=== PATIENT | male | born 1965 | race Caucasian/White ===

== ENCOUNTER 2019-10-17 00:27 | Inpatient (IN) ==
[2019-10-17] MEDS ORDERED: Aspirin 81 MG TAB.CHEW PO ONE (00:33)
[2019-10-17] MEDS ORDERED: *HR* Ticagrelor 90 MG TABLET PO ONE (00:33)
[2019-10-17] MEDS ORDERED: *HR* Ticagrelor 90 MG TABLET ONE (00:38)
[2019-10-17] MEDS ORDERED: *HR* Heparin 5,000 UNIT/ML VIAL ONE (00:38)
[2019-10-17] MEDS ORDERED: *HR* Heparin 5,000 UNIT/ML VIAL IVP ONE (00:39)
[2019-10-17] MEDS ORDERED: Aspirin 81 MG TAB.CHEW ONE ×2 (00:39→07:43)
[2019-10-17] MEDS ORDERED: Morphine Sulfate 2 MG/ML SYRINGE IVP ONE (00:40)
[2019-10-17] MEDS ORDERED: Ondansetron 4 MG/2 ML VIAL IVP STA (00:40)
[2019-10-17] MEDS ORDERED: Heparin 1,000 UNITS/500 mL 500 ML ONE (00:50)
[2019-10-17] MEDS ORDERED: 0.9 % Sodium Chloride 1,000 ML ONE (00:50)
[2019-10-17] MEDS ORDERED: ISOVUE-370 200 ML INFUS..BTL ONE (00:50)
[2019-10-17] MEDS ORDERED: *HR* Heparin 10,000 UNIT/10 ML VIAL ONE (00:50)
[2019-10-17] MEDS ORDERED: Nitroglycerin 1,000 MCG/10 ML VIAL IV ONE (00:50)
[2019-10-17] MEDS ORDERED: *HR* Midazolam HCl 2 MG/2 ML VIAL ONE (00:56)
[2019-10-17] MEDS ORDERED: *HR* FentaNYL (PF) 100 MCG/2 ML VIAL ONE (00:57)
[2019-10-17] MEDS ORDERED: Tirofiban 12.5 MG/250ML 12.5 MG/250 ML BAG ONE (01:01)
[2019-10-17 01:04] LABS: Prothrombin Time 10.8 Seconds (9.4-12.1)
[2019-10-17 01:07] LABS: Activated Partial Thrombo Time 26.4 Seconds (26.0-36.0); Basophils # 0.1 K/mcL (0.0-0.2); Basophils % 0.6 %; Eosinophils # 0.4 K/mcL (0.0-0.6); Eosinophils % 2.7 %; Hematocrit 48.7 % (37.5-50.1); Hemoglobin 16.4 g/dL (12.9-16.9); Immature Granulocytes % 0.3 % (0-4); Lymphocytes % 30.1 %; Mean Corpuscular HGB Conc 33.7 g/dL (31.6-35.5); Mean Corpuscular Hemoglobin 31.2 pg (28.0-33.3); Mean Corpuscular Volume 92.8 fL (83.0-100.0); Mean Platelet Volume 9.3 fL (9.4-12.4); Monocytes # 1.3 K/mcL (0.0-1.3); Monocytes % 9.5 %; Neutrophils # 7.5 K/mcL (1.6-8.9); Platelet Count 277 K/mcL (140-400); Red Blood Count 5.25 M/mcL (4.19-5.50); Red Cell Distribution Width 12.8 % (11.5-14.5); Segmented Neutrophils % 56.8 %; White Blood Count 13.1 K/mcL (4.3-11.1)
[2019-10-17] MEDS ORDERED: Perflutren Lipid Microsphere 1.3 ML in 0.9 % Sodium Chloride 8.7 ML IVP PRN (01:12)
[2019-10-17] MEDS ORDERED: Tirofiban 12.5 MG/250ML 12.5 MG/250 ML BAG IVC SCH (01:15)
[2019-10-17 01:19] LABS: Alanine Aminotransferase 40 Units/L (7-52); Albumin 4.2 g/dL (3.5-5.7); Albumin/Globulin Ratio 1.6 (1.1-2.2); Alkaline Phosphatase 41 Units/L (34-104); Aspartate Amino Transferase 26 Units/L (13-39); BUN/Creatinine Ratio 16 (6-26); Bilirubin,Total 0.5 mg/dL (0.3-1.0); Blood Urea Nitrogen 17 mg/dL (6-20); Calcium 9.1 mg/dL (8.6-10.3); Carbon Dioxide 21 mEq/L (23-29); Chloride 103 mEq/L (98-107); Globulin 2.7 g/dL (2.4-3.5); Glucose 248 mg/dL (70-105); Magnesium 1.9 mg/dL (1.6-2.6); Osmolality,Calculated 292 (280-300); Potassium 3.4 mEq/L (3.5-5.1); Sodium 136 mEq/L (136-145); Total Protein 6.9 g/dL (6.4-8.9); eGFR For African Americans > 60 (> 60); eGFR For Non-African Americans > 60 (> 60)
[2019-10-17 01:20] LABS: Troponin I < 0.03 ng/mL (< 0.04)
[2019-10-17 05:12] LABS: Basophils % 0.4 %; Eosinophils # 0.1 K/mcL (0.0-0.6); Eosinophils % 0.6 %; Hematocrit 47.5 % (37.5-50.1); Hemoglobin 15.8 g/dL (12.9-16.9); Immature Granulocytes % 0.4 % (0-4); Lymphocytes # 1.2 K/mcL (0.6-4.6); Lymphocytes % 12.8 %; Mean Corpuscular HGB Conc 33.3 g/dL (31.6-35.5); Mean Corpuscular Volume 93.3 fL (83.0-100.0); Mean Platelet Volume 9.3 fL (9.4-12.4); Monocytes # 0.5 K/mcL (0.0-1.3); Neutrophils # 7.2 K/mcL (1.6-8.9); Platelet Count 246 K/mcL (140-400); Red Blood Count 5.09 M/mcL (4.19-5.50); Red Cell Distribution Width 12.8 % (11.5-14.5); Segmented Neutrophils % 79.8 %; White Blood Count 9.1 K/mcL (4.3-11.1)
[2019-10-17 05:29] LABS: BUN/Creatinine Ratio 18 (6-26); Blood Urea Nitrogen 14 mg/dL (6-20); Calcium 8.8 mg/dL (8.6-10.3); Carbon Dioxide 20 mEq/L (23-29); Chloride 105 mEq/L (98-107); Glucose 261 mg/dL (70-105); Osmolality,Calculated 290 (280-300); Potassium 4.2 mEq/L (3.5-5.1); Sodium 135 mEq/L (136-145); eGFR For African Americans > 60 (> 60); eGFR For Non-African Americans > 60 (> 60)
[2019-10-17] MEDS: *HR* Ticagrelor 90 MG TABLET PO SCH ×2 (07:49→21:14)
[2019-10-17] MEDS ORDERED: Metoprolol XL (24 HR) Succ 25 MG TAB.ER.24H PO SCH (09:30)
[2019-10-17] MEDS: Apixaban 5 MG TABLET PO SCH ×2 (15:21→21:14)
[2019-10-17] MEDS: Metoprolol XL (24 HR) Succ 25 MG TAB.ER.24H PO SCH (21:14)
[2019-10-18] MEDS: Apixaban 5 MG TABLET PO SCH ×2 (08:00→20:51)
[2019-10-18] MEDS: Metoprolol XL (24 HR) Succ 25 MG TAB.ER.24H PO SCH ×2 (08:00→20:50)
[2019-10-18] MEDS: *HR* Ticagrelor 90 MG TABLET PO SCH ×2 (08:00→20:50)
[2019-10-18] MEDS ORDERED: Aspirin 81 MG TAB.CHEW PO SCH (09:00)
[2019-10-18] MEDS ORDERED: lisinopriL 5 MG TABLET PO SCH (09:00)
[2019-10-18 09:39] LABS: Basophils # 0.1 K/mcL (0.0-0.2); Eosinophils # 0.3 K/mcL (0.0-0.6); Eosinophils % 3.7 %; Hematocrit 49.5 % (37.5-50.1); Hemoglobin 16.8 g/dL (12.9-16.9); Immature Granulocytes % 0.5 % (0-4); Lymphocytes # 1.7 K/mcL (0.6-4.6); Mean Corpuscular HGB Conc 33.9 g/dL (31.6-35.5); Mean Corpuscular Hemoglobin 32.4 pg (28.0-33.3); Mean Corpuscular Volume 95.6 fL (83.0-100.0); Mean Platelet Volume 9.1 fL (9.4-12.4); Monocytes # 0.6 K/mcL (0.0-1.3); Monocytes % 8.6 %; Neutrophils # 4.6 K/mcL (1.6-8.9); Platelet Count 238 K/mcL (140-400); Red Blood Count 5.18 M/mcL (4.19-5.50); Red Cell Distribution Width 13.3 % (11.5-14.5); Segmented Neutrophils % 63.2 %; White Blood Count 7.3 K/mcL (4.3-11.1)
[2019-10-18 09:47] LABS: BUN/Creatinine Ratio 13 (6-26); Blood Urea Nitrogen 12 mg/dL (6-20); Calcium 9.4 mg/dL (8.6-10.3); Carbon Dioxide 27 mEq/L (23-29); Chloride 103 mEq/L (98-107); Glucose 174 mg/dL (70-105); Osmolality,Calculated 290 (280-300); Potassium 3.6 mEq/L (3.5-5.1); Sodium 138 mEq/L (136-145); eGFR For African Americans > 60 (> 60); eGFR For Non-African Americans > 60 (> 60)
[2019-10-18] MEDS ORDERED: Spironolactone 25 MG TABLET PO SCH (10:00)
[2019-10-18] MEDS ORDERED: Methyl Salicylate/Menthol 57 APPL/57 GM TUBE TP PRN (10:45)
[2019-10-18] MEDS ORDERED: Loratadine 10 MG TABLET PO PRN (10:45)
[2019-10-18 12:58] LABS: Troponin I 0.72 ng/mL (< 0.04)
[2019-10-19] MEDS: *HR* Ticagrelor 90 MG TABLET PO SCH (08:28)
[2019-10-19] MEDS: Apixaban 5 MG TABLET PO SCH (08:29)
[2019-10-19] MEDS: Metoprolol XL (24 HR) Succ 25 MG TAB.ER.24H PO SCH (08:29)
[2019-10-19] MEDS ORDERED: Spironolactone 25 MG TABLET PO SCH (09:00)
[2019-10-19] MEDS ORDERED: Aspirin 81 MG TAB.CHEW PO SCH (09:00)
[2019-10-19 14:49] VITALS: BP 153/96
== END 2019-10-19 13:41 | disposition home or self-care (01) | DRG 174 ==
LOC: EMEROOARM 00:27 → ICNU 01:10
PROVIDERS: ADMIT Internal Medicine Cardiovascular Disease; ATTEND Internal Medicine Cardiovascular Disease

== ENCOUNTER 2019-11-18 12:40 | Inpatient (IN) ==
[2019-11-18] MEDS ORDERED: 0.9 % Sodium Chloride 500 ML IVC ONE (12:50)
[2019-11-18] MEDS: Aspirin 81 MG TAB.CHEW PO SCH (13:16)
[2019-11-18 13:29] LABS: Basophils # 0.1 K/mcL (0.0-0.2); Basophils % 0.8 %; Eosinophils # 0.2 K/mcL (0.0-0.6); Eosinophils % 2.2 %; Hematocrit 50.4 % (37.5-50.1); Hemoglobin 16.9 g/dL (12.9-16.9); Immature Granulocytes % 0.3 % (0-4); Lymphocytes # 1.9 K/mcL (0.6-4.6); Lymphocytes % 21.1 %; Mean Corpuscular HGB Conc 33.5 g/dL (31.6-35.5); Mean Corpuscular Hemoglobin 31.5 pg (28.0-33.3); Mean Corpuscular Volume 93.9 fL (83.0-100.0); Mean Platelet Volume 9.4 fL (9.4-12.4); Monocytes # 0.9 K/mcL (0.0-1.3); Monocytes % 9.7 %; Neutrophils # 5.9 K/mcL (1.6-8.9); Platelet Count 265 K/mcL (140-400); Red Blood Count 5.37 M/mcL (4.19-5.50); Red Cell Distribution Width 12.6 % (11.5-14.5); Segmented Neutrophils % 65.9 %; White Blood Count 8.9 K/mcL (4.3-11.1)
[2019-11-18] MEDS: DilTIAZem 50 MG/50 ML IV.SOLN IVC SCH ×2 (13:30→22:09)
[2019-11-18 13:31] LABS: INR 1.3; Prothrombin Time 14.8 Seconds (9.4-12.1)
[2019-11-18 13:33] LABS: Activated Partial Thrombo Time 34.9 Seconds (26.0-36.0)
[2019-11-18 13:36] LABS: Bilirubin,Urine Negative (Negative); Blood,Urine Trace (Negative); Clarity,Urine Clear (Clear); Color,Urine Colorless (Yellow); Glucose,Urine (UA) >=1000 mg/dL (Normal); Ketones,Urine Negative (Negative); Leukocyte Esterase,Urine Negative (Negative); Mucus,Urine Few per lpf (None-Few); Nitrite,Urine Negative (Negative); PH,Urine 5.5 pH Units (5.0-8.0); Protein,Urine Negative (Neg-Trace); RBC,Urine 0-3 per hpf (0-3); Specific Gravity,Urine 1.014 (1.010-1.025); Urobilinogen,Urine Normal (Normal); WBC,Urine 0-3 per hpf (0-3)
[2019-11-18 13:48] LABS: Alanine Aminotransferase 51 Units/L (7-52); Albumin 4.5 g/dL (3.5-5.7); Albumin/Globulin Ratio 1.6 (1.1-2.2); Alkaline Phosphatase 53 Units/L (34-104); Aspartate Amino Transferase 28 Units/L (13-39); BUN/Creatinine Ratio 18 (6-26); Bilirubin,Total 0.7 mg/dL (0.3-1.0); Blood Urea Nitrogen 18 mg/dL (6-20); Calcium 9.7 mg/dL (8.6-10.3); Carbon Dioxide 25 mEq/L (23-29); Chloride 102 mEq/L (98-107); Globulin 2.9 g/dL (2.4-3.5); Glucose 324 mg/dL (70-105); Osmolality,Calculated 296 (280-300); Sodium 136 mEq/L (136-145); Total Protein 7.4 g/dL (6.4-8.9); Troponin I < 0.03 ng/mL (< 0.04); eGFR For African Americans > 60 (> 60); eGFR For Non-African Americans > 60 (> 60)
[2019-11-18 14:16] LABS: Adenovirus Not Detected (Not Detect); Bordetella Pertussis Not Detected (Not Detect); Chlamydophila pneumoniae Not Detected (Not Detect); Coronavirus 229E Not Detected (Not Detect); Coronavirus HKU1 Not Detected (Not Detect); Coronavirus NL63 Not Detected (Not Detect); Coronavirus OC43 Not Detected (Not Detect); Human Metapneumovirus Not Detected (Not Detect); Human Rhinovirus/Enterovirus Not Detected (Not Detect); Influenza A Subtype 2009 H1 Not Detected (Not Detect); Influenza B Not Detected (Not Detect); Mycoplasma pneumoniae Not Detected (Not Detect); Parainfluenza Virus 1 Not Detected (Not Detect); Parainfluenza Virus 2 Not Detected (Not Detect); Parainfluenza Virus 3 Not Detected (Not Detect); Parainfluenza Virus 4 Not Detected (Not Detect); Respiratory Syncytial Virus Not Detected (Not Detect)
[2019-11-18] MEDS ORDERED: Naloxone 0.4 MG/ML INJ IVP PRN (14:28)
[2019-11-18] MEDS ORDERED: Artificial Tears SOLN 15 ML BOTTLE BOTH EYES PRN (14:49)
[2019-11-18] MEDS: *HR* Ticagrelor 90 MG TABLET PO SCH (19:44)
[2019-11-18] MEDS: Metoprolol XL (24 HR) Succ 25 MG TAB.ER.24H PO SCH (19:44)
[2019-11-18] MEDS: Apixaban 5 MG TABLET PO SCH (19:44)
[2019-11-19] MEDS ORDERED: Acetaminophen 325 MG TABLET PO ONE (00:05)
[2019-11-19 05:51] LABS: Basophils # 0.1 K/mcL (0.0-0.2); Basophils % 1.1 %; Eosinophils # 0.3 K/mcL (0.0-0.6); Eosinophils % 4.1 %; Hematocrit 49.5 % (37.5-50.1); Hemoglobin 16.2 g/dL (12.9-16.9); Immature Granulocytes % 0.2 % (0-4); Lymphocytes # 2.3 K/mcL (0.6-4.6); Lymphocytes % 27.9 %; Mean Corpuscular HGB Conc 32.7 g/dL (31.6-35.5); Mean Corpuscular Hemoglobin 30.8 pg (28.0-33.3); Mean Corpuscular Volume 94.1 fL (83.0-100.0); Mean Platelet Volume 9.3 fL (9.4-12.4); Monocytes # 0.9 K/mcL (0.0-1.3); Monocytes % 10.6 %; Neutrophils # 4.7 K/mcL (1.6-8.9); Platelet Count 242 K/mcL (140-400); Red Blood Count 5.26 M/mcL (4.19-5.50); Red Cell Distribution Width 12.8 % (11.5-14.5); Segmented Neutrophils % 56.1 %; White Blood Count 8.3 K/mcL (4.3-11.1)
[2019-11-19 06:11] LABS: BUN/Creatinine Ratio 16 (6-26); Blood Urea Nitrogen 15 mg/dL (6-20); Calcium 9.3 mg/dL (8.6-10.3); Carbon Dioxide 23 mEq/L (23-29); Chloride 106 mEq/L (98-107); Glucose 226 mg/dL (70-105); Magnesium 1.8 mg/dL (1.6-2.6); Osmolality,Calculated 292 (280-300); Phosphorous 3.1 mg/dL (2.7-4.5); Potassium 3.9 mEq/L (3.5-5.1); Sodium 137 mEq/L (136-145); eGFR For African Americans > 60 (> 60); eGFR For Non-African Americans > 60 (> 60)
[2019-11-19] MEDS: Apixaban 5 MG TABLET PO SCH ×2 (07:26→20:43)
[2019-11-19] MEDS: *HR* Ticagrelor 90 MG TABLET PO SCH ×2 (07:26→20:42)
[2019-11-19] MEDS: Spironolactone 25 MG TABLET PO SCH (07:26)
[2019-11-19] MEDS: Aspirin 81 MG TAB.CHEW PO SCH (07:26)
[2019-11-19] MEDS: Metoprolol XL (24 HR) Succ 25 MG TAB.ER.24H PO SCH ×2 (07:26→20:43)
[2019-11-19] MEDS ORDERED: Perflutren Lipid Microsphere 1.3 ML in 0.9 % Sodium Chloride 8.7 ML IVP PRN (08:27)
[2019-11-19] MEDS ORDERED: Metoprolol XL (24 HR) Succ 25 MG TAB.ER.24H PO ONE (12:04)
[2019-11-20] MEDS: Metoprolol XL (24 HR) Succ 25 MG TAB.ER.24H PO SCH ×2 (07:37→20:06)
[2019-11-20] MEDS: *HR* Ticagrelor 90 MG TABLET PO SCH ×2 (07:37→20:06)
[2019-11-20] MEDS: Spironolactone 25 MG TABLET PO SCH (07:38)
[2019-11-20] MEDS: Apixaban 5 MG TABLET PO SCH ×2 (07:38→20:06)
[2019-11-20] MEDS ORDERED: *HR* Dextrose 50 % in Water (Vial) 50 ML VIAL IVP PRN (09:15)
[2019-11-20] MEDS ORDERED: D5% in Water 1,000 ML IVC PRN (09:15)
[2019-11-20] MEDS ORDERED: Dextrose Gel 15 GM/37.5 ML TUBE PO PRN ×2 (09:15)
[2019-11-20] MEDS: Insulin LISPRO 300 UNITS/3 ML VIAL SQ SCH ×4 (10:18→20:06)
[2019-11-20 10:25] LABS: Estimated Average Glucose 226 mg/dl
[2019-11-20 11:06] LABS: Chol/HDL Ratio 4.7 (0-4.9); Cholesterol 149 mg/dL (< 200); HDL Cholesterol 32 mg/dL (40-59); LDL Cholesterol,Calculated 89 mg/dL (< 100); Triglycerides 142 mg/dL (< 150)
[2019-11-21] MEDS ORDERED: Oxymetazoline Nasal SPRAY BOTTLE NS PRN (00:24)
[2019-11-21] MEDS: *HR* Ticagrelor 90 MG TABLET PO SCH ×2 (08:01→20:38)
[2019-11-21] MEDS: Spironolactone 25 MG TABLET PO SCH (08:01)
[2019-11-21] MEDS: Apixaban 5 MG TABLET PO SCH ×2 (08:01→20:38)
[2019-11-21] MEDS: Metoprolol XL (24 HR) Succ 25 MG TAB.ER.24H PO SCH ×2 (08:01→20:39)
[2019-11-21] MEDS: Insulin LISPRO 300 UNITS/3 ML VIAL SQ SCH ×4 (08:02→20:39)
[2019-11-22] MEDS: Insulin LISPRO 300 UNITS/3 ML VIAL SQ SCH ×4 (07:31→20:29)
[2019-11-22] MEDS: Apixaban 5 MG TABLET PO SCH ×2 (07:31→20:28)
[2019-11-22] MEDS: Spironolactone 25 MG TABLET PO SCH (07:31)
[2019-11-22] MEDS: *HR* Ticagrelor 90 MG TABLET PO SCH ×2 (07:31→20:28)
[2019-11-22] MEDS: Metoprolol XL (24 HR) Succ 25 MG TAB.ER.24H PO SCH ×2 (07:31→20:27)
[2019-11-22] MEDS: Insulin DETEMIR 100 UNIT/ML X5UNITS SQ SCH (20:28)
[2019-11-23 06:40] LABS: Basophils # 0.1 K/mcL (0.0-0.2); Basophils % 0.7 %; Eosinophils # 0.4 K/mcL (0.0-0.6); Eosinophils % 4.3 %; Hematocrit 46.4 % (37.5-50.1); Hemoglobin 15.5 g/dL (12.9-16.9); Immature Granulocytes % 0.6 % (0-4); Lymphocytes # 1.9 K/mcL (0.6-4.6); Lymphocytes % 21.7 %; Mean Corpuscular HGB Conc 33.4 g/dL (31.6-35.5); Mean Corpuscular Hemoglobin 31.3 pg (28.0-33.3); Mean Corpuscular Volume 93.7 fL (83.0-100.0); Mean Platelet Volume 9.1 fL (9.4-12.4); Monocytes % 11.9 %; Neutrophils # 5.2 K/mcL (1.6-8.9); Platelet Count 248 K/mcL (140-400); Red Blood Count 4.95 M/mcL (4.19-5.50); Red Cell Distribution Width 12.9 % (11.5-14.5); Segmented Neutrophils % 60.8 %; White Blood Count 8.6 K/mcL (4.3-11.1)
[2019-11-23 07:22] LABS: BUN/Creatinine Ratio 16 (6-26); Blood Urea Nitrogen 15 mg/dL (6-20); Calcium 9.6 mg/dL (8.6-10.3); Carbon Dioxide 26 mEq/L (23-29); Chloride 104 mEq/L (98-107); Glucose 179 mg/dL (70-105); Magnesium 1.9 mg/dL (1.6-2.6); Osmolality,Calculated 289 (280-300); Phosphorous 3.4 mg/dL (2.7-4.5); Potassium 4.2 mEq/L (3.5-5.1); Sodium 137 mEq/L (136-145); eGFR For African Americans > 60 (> 60); eGFR For Non-African Americans > 60 (> 60)
[2019-11-23] MEDS: Metoprolol XL (24 HR) Succ 25 MG TAB.ER.24H PO SCH ×2 (08:44→21:13)
[2019-11-23] MEDS: Apixaban 5 MG TABLET PO SCH ×2 (08:44→21:08)
[2019-11-23] MEDS: Insulin LISPRO 300 UNITS/3 ML VIAL SQ SCH ×7 (08:45→21:04)
[2019-11-23] MEDS: Spironolactone 25 MG TABLET PO SCH (08:45)
[2019-11-23] MEDS: Insulin DETEMIR 100 UNIT/ML X5UNITS SQ SCH ×2 (09:17→21:14)
[2019-11-24] MEDS: Metoprolol XL (24 HR) Succ 25 MG TAB.ER.24H PO SCH ×2 (08:16→20:10)
[2019-11-24] MEDS: Spironolactone 25 MG TABLET PO SCH (08:16)
[2019-11-24] MEDS: Apixaban 5 MG TABLET PO SCH (08:16)
[2019-11-24] MEDS: Insulin LISPRO 300 UNITS/3 ML VIAL SQ SCH ×8 (08:16→20:10)
[2019-11-24] MEDS: Insulin DETEMIR 100 UNIT/ML X5UNITS SQ SCH ×2 (08:16→20:11)
[2019-11-24 09:46] LABS: Basophils # 0.1 K/mcL (0.0-0.2); Basophils % 1.2 %; Eosinophils # 0.3 K/mcL (0.0-0.6); Eosinophils % 3.8 %; Hematocrit 48.7 % (37.5-50.1); Hemoglobin 16.2 g/dL (12.9-16.9); Immature Granulocytes % 0.3 % (0-4); Lymphocytes # 1.6 K/mcL (0.6-4.6); Lymphocytes % 23.6 %; Mean Corpuscular HGB Conc 33.3 g/dL (31.6-35.5); Mean Corpuscular Hemoglobin 31.7 pg (28.0-33.3); Mean Corpuscular Volume 95.3 fL (83.0-100.0); Monocytes # 0.6 K/mcL (0.0-1.3); Monocytes % 9.4 %; Neutrophils # 4.2 K/mcL (1.6-8.9); Platelet Count 265 K/mcL (140-400); Red Blood Count 5.11 M/mcL (4.19-5.50); Red Cell Distribution Width 12.9 % (11.5-14.5); Segmented Neutrophils % 61.7 %; White Blood Count 6.8 K/mcL (4.3-11.1)
[2019-11-24 09:51] LABS: INR 1.2; Prothrombin Time 13.1 Seconds (9.4-12.1)
[2019-11-24 09:53] LABS: Activated Partial Thrombo Time 34.8 Seconds (26.0-36.0)
[2019-11-24 10:02] LABS: BUN/Creatinine Ratio 17 (6-26); Blood Urea Nitrogen 17 mg/dL (6-20); Calcium 9.9 mg/dL (8.6-10.3); Carbon Dioxide 29 mEq/L (23-29); Chloride 101 mEq/L (98-107); Glucose 252 mg/dL (70-105); Osmolality,Calculated 292 (280-300); Potassium 3.9 mEq/L (3.5-5.1); Sodium 136 mEq/L (136-145); eGFR For African Americans > 60 (> 60); eGFR For Non-African Americans > 60 (> 60)
[2019-11-24 10:41] LABS: Estimated Average Glucose 223 mg/dl
[2019-11-24 12:45] LABS: Bilirubin,Urine Negative (Negative); Blood,Urine Negative (Negative); Clarity,Urine Clear (Clear); Color,Urine Light-Yellow (Yellow); Glucose,Urine (UA) >=1000 mg/dL (Normal); Ketones,Urine Negative (Negative); Leukocyte Esterase,Urine Negative (Negative); Nitrite,Urine Negative (Negative); PH,Urine 5.5 pH Units (5.0-8.0); Protein,Urine Negative (Neg-Trace); RBC,Urine 0-3 per hpf (0-3); Specific Gravity,Urine 1.014 (1.010-1.025); Urobilinogen,Urine Normal (Normal)
[2019-11-24] MEDS: Acetaminophen 325 MG TABLET PO PRN ×2 (17:09→23:09)
[2019-11-24] MEDS: Sennosides/Docusate Sodium TABLET PO SCH (20:15)
[2019-11-24] MEDS ORDERED: Chlorhexidine Rinse 15 ML MOUTHWASH MM SCH (21:00)
[2019-11-24] MEDS: Loratadine 10 MG TABLET PO PRN (23:06)
[2019-11-25] MEDS: Insulin LISPRO 300 UNITS/3 ML VIAL SQ SCH ×8 (07:11→20:59)
[2019-11-25] MEDS: Metoprolol XL (24 HR) Succ 25 MG TAB.ER.24H PO SCH ×2 (07:12→20:58)
[2019-11-25] MEDS: Sennosides/Docusate Sodium TABLET PO SCH (07:12)
[2019-11-25] MEDS: Insulin DETEMIR 100 UNIT/ML X5UNITS SQ SCH ×3 (07:13→20:59)
[2019-11-25] MEDS: Spironolactone 25 MG TABLET PO SCH (07:13)
[2019-11-25] MEDS: Cangrelor tetrasodium 50 MG in 0.9 % Sodium Chloride 250 ML IVPB SCH ×2 (08:41→18:12)
[2019-11-25] MEDS: Nitroglycerin 0.4 MG TAB.SUBL SL PRN ×2 (23:41→23:48)
[2019-11-26 01:50] LABS: Basophils # 0.1 K/mcL (0.0-0.2); Basophils % 0.8 %; Eosinophils # 0.4 K/mcL (0.0-0.6); Eosinophils % 3.5 %; Hematocrit 45.7 % (37.5-50.1); Hemoglobin 15.3 g/dL (12.9-16.9); Immature Granulocytes % 0.6 % (0-4); Lymphocytes # 2.6 K/mcL (0.6-4.6); Lymphocytes % 26.5 %; Mean Corpuscular HGB Conc 33.5 g/dL (31.6-35.5); Mean Corpuscular Volume 95.6 fL (83.0-100.0); Mean Platelet Volume 9.2 fL (9.4-12.4); Monocytes # 1.2 K/mcL (0.0-1.3); Monocytes % 12.4 %; Neutrophils # 5.6 K/mcL (1.6-8.9); Platelet Count 254 K/mcL (140-400); Red Blood Count 4.78 M/mcL (4.19-5.50); Red Cell Distribution Width 12.8 % (11.5-14.5); Segmented Neutrophils % 56.2 %; White Blood Count 9.9 K/mcL (4.3-11.1)
[2019-11-26 02:10] LABS: BUN/Creatinine Ratio 16 (6-26); Blood Urea Nitrogen 17 mg/dL (6-20); Calcium 9.3 mg/dL (8.6-10.3); Carbon Dioxide 28 mEq/L (23-29); Chloride 104 mEq/L (98-107); Glucose 202 mg/dL (70-105); Magnesium 1.9 mg/dL (1.6-2.6); Osmolality,Calculated 293 (280-300); Phosphorous 3.9 mg/dL (2.7-4.5); Potassium 4.2 mEq/L (3.5-5.1); Sodium 138 mEq/L (136-145); eGFR For African Americans > 60 (> 60); eGFR For Non-African Americans > 60 (> 60)
[2019-11-26] MEDS: Cangrelor tetrasodium 50 MG in 0.9 % Sodium Chloride 250 ML IVPB SCH ×3 (03:59→23:00)
[2019-11-26] MEDS: Metoprolol XL (24 HR) Succ 25 MG TAB.ER.24H PO SCH ×2 (07:36→21:22)
[2019-11-26] MEDS: Spironolactone 25 MG TABLET PO SCH (07:36)
[2019-11-26] MEDS: Insulin LISPRO 300 UNITS/3 ML VIAL SQ SCH ×7 (08:16→21:23)
[2019-11-26] MEDS: Insulin DETEMIR 100 UNIT/ML X5UNITS SQ SCH ×2 (08:17→21:25)
[2019-11-27] MEDS: Spironolactone 25 MG TABLET PO SCH (08:05)
[2019-11-27] MEDS: Metoprolol XL (24 HR) Succ 25 MG TAB.ER.24H PO SCH ×2 (08:05→20:45)
[2019-11-27] MEDS: Insulin DETEMIR 100 UNIT/ML X5UNITS SQ SCH ×2 (08:05→20:44)
[2019-11-27] MEDS: Insulin LISPRO 300 UNITS/3 ML VIAL SQ SCH ×7 (08:06→20:42)
[2019-11-27] MEDS: Cangrelor tetrasodium 50 MG in 0.9 % Sodium Chloride 250 ML IVPB SCH ×2 (08:06→18:16)
[2019-11-27] MEDS ORDERED: Insulin Human Regular 100 UNIT in 0.9 % Sodium Chloride 100 ML IV PRN (13:45)
[2019-11-27] MEDS: Chlorhexidine Rinse 15 ML MOUTHWASH MM SCH (20:45)
[2019-11-28 01:59] LABS: Basophils % 0.5 %; Eosinophils # 0.4 K/mcL (0.0-0.6); Eosinophils % 4.6 %; Hematocrit 46.2 % (37.5-50.1); Hemoglobin 15.3 g/dL (12.9-16.9); Immature Granulocytes % 0.4 % (0-4); Lymphocytes # 2.4 K/mcL (0.6-4.6); Lymphocytes % 28.6 %; Mean Corpuscular HGB Conc 33.1 g/dL (31.6-35.5); Mean Corpuscular Hemoglobin 31.2 pg (28.0-33.3); Mean Corpuscular Volume 94.1 fL (83.0-100.0); Mean Platelet Volume 9.1 fL (9.4-12.4); Monocytes # 1.1 K/mcL (0.0-1.3); Monocytes % 12.5 %; Neutrophils # 4.5 K/mcL (1.6-8.9); Platelet Count 254 K/mcL (140-400); Red Blood Count 4.91 M/mcL (4.19-5.50); Red Cell Distribution Width 12.9 % (11.5-14.5); Segmented Neutrophils % 53.4 %; White Blood Count 8.4 K/mcL (4.3-11.1)
[2019-11-28] MEDS ORDERED: Dextrose 50 % in Water (Vial) 30 ML, Sodium Bicarbonate 20 MEQ, Lidocaine 1% 5 ML, Insu... TH ONE ×3 (02:00)
[2019-11-28] MEDS ORDERED: Norepinephrine 4 MG in 0.9 % Sodium Chloride 250 ML IVC PRN (02:00)
[2019-11-28] MEDS ORDERED: Heparin 15,000 UNIT in 0.9 % Sodium Chloride 500 ML IV ONE (02:00)
[2019-11-28] MEDS ORDERED: Dextrose 50 % in Water (Vial) 30 ML, Sodium Bicarbonate 20 MEQ, Potassium Chloride 15 M... TH ONE (02:00)
[2019-11-28 02:17] LABS: BUN/Creatinine Ratio 15 (6-26); Blood Urea Nitrogen 17 mg/dL (6-20); Calcium 9.2 mg/dL (8.6-10.3); Carbon Dioxide 24 mEq/L (23-29); Chloride 104 mEq/L (98-107); Glucose 256 mg/dL (70-105); Magnesium 1.6 mg/dL (1.6-2.6); Osmolality,Calculated 294 (280-300); Phosphorous 3.8 mg/dL (2.7-4.5); Sodium 137 mEq/L (136-145); eGFR For African Americans > 60 (> 60); eGFR For Non-African Americans > 60 (> 60)
[2019-11-28] MEDS: Cangrelor tetrasodium 50 MG in 0.9 % Sodium Chloride 250 ML IVPB SCH (04:32)
[2019-11-28] MEDS: Metoprolol XL (24 HR) Succ 25 MG TAB.ER.24H PO SCH (08:00)
[2019-11-28] MEDS: Spironolactone 25 MG TABLET PO SCH (08:00)
[2019-11-28] MEDS: Insulin LISPRO 300 UNITS/3 ML VIAL SQ SCH ×2 (08:00)
[2019-11-28] MEDS: Chlorhexidine Rinse 15 ML MOUTHWASH MM SCH ×2 (08:00→19:49)
[2019-11-28] MEDS: Insulin DETEMIR 100 UNIT/ML X5UNITS SQ SCH ×2 (08:12→19:49)
[2019-11-28] MEDS ORDERED: NiCARdipine 2.5 MG/10 ML Syringe IVPB ONE (08:32)
[2019-11-28] MEDS ORDERED: *HR* FentaNYL (PF) 1,000 MCG/20 ML VIAL ONE (08:34)
[2019-11-28] MEDS ORDERED: *HR* FentaNYL (PF) 250 MCG/5 ML VIAL ONE (08:34)
[2019-11-28] MEDS ORDERED: *HR* Midazolam HCl 5 MG/5 ML VIAL IVP ONE (08:34)
[2019-11-28] MEDS ORDERED: *HR* PHENYLEPHRINE 1,000 MCG/10 ML SYRINGE IVP ONE (08:36)
[2019-11-28] MEDS ORDERED: *HR* Rocuronium Bromide 50 MG/5 ML VIAL ONE ×3 (08:36→13:31)
[2019-11-28] MEDS ORDERED: *HR* Etomidate 20 MG/10 ML AMPUL IVP ONE (08:37)
[2019-11-28] MEDS ORDERED: Famotidine 20 MG/2 ML VIAL ONE (08:37)
[2019-11-28] MEDS ORDERED: Calcium Gluconate 1,000 MG/10 ML VIAL ONE (08:39)
[2019-11-28] MEDS ORDERED: Tranexamic Acid 1,000 MG/10 ML VIAL ONE ×4 (08:39→14:16)
[2019-11-28] MEDS ORDERED: Protamine Sulfate 250 MG/25 ML VIAL IVP ONE (08:39)
[2019-11-28] MEDS: Loratadine 10 MG TABLET PO PRN (08:42)
[2019-11-28] MEDS ORDERED: CeFAZolin Syr 2,000MG/20 ML 2,000 MG/20 ML SYRINGE IVPB ONE (09:13)
[2019-11-28] MEDS ORDERED: CeFAZolin 2 GM/120 ML BAG IVPB ONE (10:00)
[2019-11-28] MEDS ORDERED: *HR* Amiodarone 150 MG/3 ML VIAL IVPB ONE (11:27)
[2019-11-28] MEDS ORDERED: Amiodarone Premix 360 MG/200 ML BAG IVC ONE ×2 (11:27→14:59)
[2019-11-28 11:29] LABS: ABG Base Excess 0 mEq/L (-2 to 3); ABG Chloride 106 mEq/L (98-107); ABG Glucose 150 mg/dL (60-95); ABG HCO3 26 mEq/L (21-27); ABG Ionized Calcium 1.13 mmol/L (1.15-1.35); ABG Oxygen Saturation 100 % (95-98); ABG PCO2 45 mmHg (35-45); ABG PH 7.38 pH Units (7.32-7.45); ABG PO2 346 mmHg (85-104); ABG TCO2 28 mEq/L (20-26)
[2019-11-28] MEDS ORDERED: 0.9 % Sodium Chloride 500 ML ONE (12:22)
[2019-11-28] MEDS ORDERED: niCARdipine 20 MG/200 ML MLS IVC ONE (12:23)
[2019-11-28 12:42] LABS: ABG Base Excess -1 mEq/L (-2 to 3); ABG Chloride 107 mEq/L (98-107); ABG Glucose 163 mg/dL (60-95); ABG HCO3 25 mEq/L (21-27); ABG Ionized Calcium 1.13 mmol/L (1.15-1.35); ABG Oxygen Saturation 98 % (95-98); ABG PCO2 45 mmHg (35-45); ABG PH 7.35 pH Units (7.32-7.45); ABG PO2 104 mmHg (85-104); ABG TCO2 26 mEq/L (20-26)
[2019-11-28 13:07] LABS: ABG Base Excess 0 mEq/L (-2 to 3); ABG Chloride 100 mEq/L (98-107); ABG Glucose 275 mg/dL (60-95); ABG HCO3 26 mEq/L (21-27); ABG Ionized Calcium 0.97 mmol/L (1.15-1.35); ABG Oxygen Saturation 100 % (95-98); ABG PCO2 45 mmHg (35-45); ABG PH 7.37 pH Units (7.32-7.45); ABG PO2 450 mmHg (85-104); ABG TCO2 27 mEq/L (20-26)
[2019-11-28 13:38] LABS: ABG Base Excess -2 mEq/L (-2 to 3); ABG Chloride 98 mEq/L (98-107); ABG Glucose 244 mg/dL (60-95); ABG HCO3 24 mEq/L (21-27); ABG Ionized Calcium 1.01 mmol/L (1.15-1.35); ABG Oxygen Saturation 99 % (95-98); ABG PCO2 45 mmHg (35-45); ABG PH 7.35 pH Units (7.32-7.45); ABG PO2 159 mmHg (85-104); ABG TCO2 26 mEq/L (20-26)
[2019-11-28 14:00] LABS: ABG Base Excess 0 mEq/L (-2 to 3); ABG Chloride 100 mEq/L (98-107); ABG Glucose 212 mg/dL (60-95); ABG HCO3 26 mEq/L (21-27); ABG Ionized Calcium 1.25 mmol/L (1.15-1.35); ABG Oxygen Saturation 100 % (95-98); ABG PCO2 47 mmHg (35-45); ABG PH 7.35 pH Units (7.32-7.45); ABG PO2 436 mmHg (85-104); ABG TCO2 28 mEq/L (20-26)
[2019-11-28] MEDS ORDERED: Albumin Human 5% 50.0 GM/1,000 ML IV.SOLN ONE (14:23)
[2019-11-28 14:31] LABS: ABG Base Excess 1 mEq/L (-2 to 3); ABG Chloride 101 mEq/L (98-107); ABG Glucose 197 mg/dL (60-95); ABG HCO3 26 mEq/L (21-27); ABG Ionized Calcium 1.15 mmol/L (1.15-1.35); ABG Oxygen Saturation 100 % (95-98); ABG PCO2 44 mmHg (35-45); ABG PH 7.38 pH Units (7.32-7.45); ABG PO2 429 mmHg (85-104); ABG TCO2 28 mEq/L (20-26)
[2019-11-28 14:42] LABS: ABG Base Excess -2 mEq/L (-2 to 3); ABG Chloride 103 mEq/L (98-107); ABG Glucose 165 mg/dL (60-95); ABG HCO3 24 mEq/L (21-27); ABG Ionized Calcium 1.25 mmol/L (1.15-1.35); ABG Oxygen Saturation 93 % (95-98); ABG PCO2 43 mmHg (35-45); ABG PH 7.35 pH Units (7.32-7.45); ABG PO2 70 mmHg (85-104); ABG TCO2 25 mEq/L (20-26)
[2019-11-28] MEDS ORDERED: Insulin Regular, Human 100 UNIT/ML IV PRN (14:59)
[2019-11-28] MEDS ORDERED: *HR* Dextrose 50 % in Water (Vial) 50 ML VIAL IVP PRN (14:59)
[2019-11-28] MEDS ORDERED: Potassium Chloride 40 MEQ/200 ML BAG IVPB PRN (14:59)
[2019-11-28] MEDS: Insulin Human Regular 100 UNIT in 0.9 % Sodium Chloride 100 ML IVC SCH (15:00)
[2019-11-28 15:21] LABS: ABG Base Excess 0 mEq/L (-2 to 3); ABG HCO3 26 mEq/L (21-27); ABG Oxygen Saturation 99 % (95-98); ABG PCO2 43 mmHg (35-45); ABG PH 7.38 pH Units (7.32-7.45); ABG PO2 165 mmHg (85-104); ABG TCO2 27 mEq/L (20-26); Blood Gas Modality ASSIST CONTROL; Blood Gas VT 500 cc
[2019-11-28 15:28] LABS: Basophils # 0.1 K/mcL (0.0-0.2); Basophils % 0.3 %; Eosinophils # 0.2 K/mcL (0.0-0.6); Eosinophils % 1.2 %; Hematocrit 40.5 % (37.5-50.1); Immature Granulocytes % 0.8 % (0-4); Lymphocytes % 13.4 %; Mean Corpuscular HGB Conc 33.6 g/dL (31.6-35.5); Mean Corpuscular Hemoglobin 31.8 pg (28.0-33.3); Mean Corpuscular Volume 94.6 fL (83.0-100.0); Mean Platelet Volume 9.1 fL (9.4-12.4); Monocytes # 1.4 K/mcL (0.0-1.3); Monocytes % 8.9 %; Neutrophils # 11.5 K/mcL (1.6-8.9); Platelet Count 142 K/mcL (140-400); Red Blood Count 4.28 M/mcL (4.19-5.50); Segmented Neutrophils % 75.4 %
[2019-11-28 15:29] LABS: Hemoglobin 13.6 g/dL (12.9-16.9); White Blood Count 15.2 K/mcL (4.3-11.1)
[2019-11-28 15:38] LABS: INR 1.2
[2019-11-28 15:41] LABS: Activated Partial Thrombo Time 26.8 Seconds (26.0-36.0)
[2019-11-28 15:43] LABS: BUN/Creatinine Ratio 14 (6-26); Blood Urea Nitrogen 12 mg/dL (6-20); Calcium 9.4 mg/dL (8.6-10.3); Carbon Dioxide 25 mEq/L (23-29); Chloride 106 mEq/L (98-107); Glucose 147 mg/dL (70-105); Magnesium 2.3 mg/dL (1.6-2.6); Osmolality,Calculated 290 (280-300); Sodium 139 mEq/L (136-145); eGFR For African Americans > 60 (> 60); eGFR For Non-African Americans > 60 (> 60)
[2019-11-28 15:44] LABS: Prothrombin Time 13.1 Seconds (9.4-12.1)
[2019-11-28] MEDS: Albumin Human 5% 12.5 GM/250 ML IV.SOLN IVPB PRN ×4 (15:45→19:54)
[2019-11-28] MEDS: CeFAZolin 2 GM/120 ML BAG IVPB SCH ×2 (16:03→23:15)
[2019-11-28] MEDS: 0.9 % Sodium Chloride 1,000 ML IVC SCH (16:03)
[2019-11-28] MEDS: Norepinephrine 4 MG/254 ML IV.SOLN IVC SCH (17:00)
[2019-11-28] MEDS: Amiodarone Premix 360 MG/200 ML BAG IVC SCH (17:25)
[2019-11-28] MEDS: *HR* FentaNYL (PF) 100 MCG/2 ML VIAL IVP PRN ×4 (17:51→23:22)
[2019-11-28] MEDS: Ondansetron 4 MG/2 ML VIAL IVP PRN (17:52)
[2019-11-28] MEDS: *HR* OxyCODONE/APAP 5/325 TABLET PO PRN ×2 (18:44→23:14)
[2019-11-28] MEDS: niCARdipine 20 MG/200 ML MLS IVC SCH ×3 (19:44→23:08)
[2019-11-28 20:14] LABS: ABG Base Excess 0 mEq/L (-2 to 3); ABG HCO3 26 mEq/L (21-27); ABG Oxygen Saturation 96 % (95-98); ABG PCO2 49 mmHg (35-45); ABG PH 7.34 pH Units (7.32-7.45); ABG PO2 87 mmHg (85-104); ABG TCO2 28 mEq/L (20-26); Blood Gas Modality CPAP/PS; Blood Gas Pressure Support 8 cm H2O
[2019-11-28 21:32] LABS: ABG Base Excess 0 mEq/L (-2 to 3); ABG HCO3 27 mEq/L (21-27); ABG Oxygen Saturation 89 % (95-98); ABG PCO2 51 mmHg (35-45); ABG PH 7.33 pH Units (7.32-7.45); ABG PO2 62 mmHg (85-104); ABG TCO2 28 mEq/L (20-26)
[2019-11-29] MEDS: *HR* Promethazine 25 MG/ML VIAL IVP PRN (00:30)
[2019-11-29] MEDS: *HR* FentaNYL (PF) 100 MCG/2 ML VIAL IVP PRN ×3 (03:13→15:02)
[2019-11-29] MEDS: *HR* OxyCODONE/APAP 5/325 TABLET PO PRN ×5 (03:13→20:55)
[2019-11-29] MEDS: 0.9 % Sodium Chloride 1,000 ML IVC SCH (03:16)
[2019-11-29] MEDS: niCARdipine 20 MG/200 ML MLS IVC SCH ×4 (03:43→15:54)
[2019-11-29] MEDS: Insulin Human Regular 100 UNIT in 0.9 % Sodium Chloride 100 ML IVC SCH (03:57)
[2019-11-29 04:21] LABS: ABG Base Excess 0 mEq/L (-2 to 3); ABG HCO3 27 mEq/L (21-27); ABG Oxygen Saturation 91 % (95-98); ABG PCO2 49 mmHg (35-45); ABG PH 7.34 pH Units (7.32-7.45); ABG PO2 66 mmHg (85-104); ABG TCO2 28 mEq/L (20-26)
[2019-11-29] MEDS: Amiodarone Premix 360 MG/200 ML BAG IVC SCH (05:04)
[2019-11-29 05:08] LABS: Basophils % 0.2 %; Hematocrit 38.2 % (37.5-50.1); Hemoglobin 12.6 g/dL (12.9-16.9); Immature Granulocytes % 0.5 % (0-4); Lymphocytes # 0.9 K/mcL (0.6-4.6); Mean Corpuscular Hemoglobin 32.1 pg (28.0-33.3); Mean Corpuscular Volume 97.4 fL (83.0-100.0); Mean Platelet Volume 9.5 fL (9.4-12.4); Monocytes % 15.5 %; Neutrophils # 9.9 K/mcL (1.6-8.9); Platelet Count 166 K/mcL (140-400); Red Blood Count 3.92 M/mcL (4.19-5.50); Red Cell Distribution Width 13.6 % (11.5-14.5); Segmented Neutrophils % 76.8 %; White Blood Count 12.9 K/mcL (4.3-11.1)
[2019-11-29 05:28] LABS: BUN/Creatinine Ratio 10 (6-26); Blood Urea Nitrogen 10 mg/dL (6-20); Calcium 9.2 mg/dL (8.6-10.3); Carbon Dioxide 24 mEq/L (23-29); Chloride 105 mEq/L (98-107); Glucose 166 mg/dL (70-105); Osmolality,Calculated 289 (280-300); Sodium 138 mEq/L (136-145); eGFR For African Americans > 60 (> 60); eGFR For Non-African Americans > 60 (> 60)
[2019-11-29] MEDS: Insulin LISPRO 300 UNITS/3 ML VIAL SQ SCH ×2 (06:05)
[2019-11-29] MEDS: Spironolactone 25 MG TABLET PO SCH (07:47)
[2019-11-29] MEDS: Chlorhexidine Rinse 15 ML MOUTHWASH MM SCH ×2 (07:47→20:21)
[2019-11-29] MEDS: Insulin DETEMIR 100 UNIT/ML X5UNITS SQ SCH ×2 (07:51→20:23)
[2019-11-29] MEDS ORDERED: Aspirin Enteric Coated 81 MG Tablet PO SCH (09:00)
[2019-11-29] MEDS ORDERED: Pantoprazole 40 MG VIAL IVP SCH (09:00)
[2019-11-29] MEDS: *HR* Amiodarone 200 MG TABLET PO SCH ×2 (09:22→20:21)
[2019-11-29] MEDS: *HR* Ticagrelor 90 MG TABLET PO SCH ×2 (09:22→20:20)
[2019-11-29] MEDS: Apixaban 5 MG TABLET PO SCH ×2 (09:22→20:21)
[2019-11-29] MEDS: Ondansetron 4 MG/2 ML VIAL IVP PRN (13:04)
[2019-11-29] MEDS: Norepinephrine 4 MG/254 ML IV.SOLN IVC SCH (14:55)
[2019-11-29] MEDS ORDERED: Dextrose Gel 15 GM/37.5 ML TUBE PO PRN ×2 (16:30)
[2019-11-29] MEDS ORDERED: *HR* Dextrose 50 % in Water (Vial) 50 ML VIAL IVP PRN (16:30)
[2019-11-29] MEDS ORDERED: Insulin LISPRO 300 UNITS/3 ML VIAL SQ SCH ×2 (16:30→21:00)
[2019-11-29] MEDS ORDERED: D5% in Water 1,000 ML IVC PRN (16:30)
[2019-11-30] MEDS: niCARdipine 20 MG/200 ML MLS IVC SCH ×3 (00:06→08:27)
[2019-11-30] MEDS: *HR* Promethazine 25 MG/ML VIAL IVP PRN ×2 (00:31→06:53)
[2019-11-30] MEDS: *HR* OxyCODONE/APAP 5/325 TABLET PO PRN ×3 (02:12→17:14)
[2019-11-30] MEDS ORDERED: Dextrose Gel 15 GM/37.5 ML TUBE PO PRN ×2 (08:28)
[2019-11-30] MEDS ORDERED: Ondansetron 4 MG/2 ML VIAL IVP PRN (08:28)
[2019-11-30] MEDS ORDERED: *HR* Dextrose 50 % in Water (Vial) 50 ML VIAL IVP PRN ×3 (08:28)
[2019-11-30] MEDS ORDERED: Insulin Regular, Human 100 UNIT/ML IV PRN (08:28)
[2019-11-30] MEDS ORDERED: Nitroglycerin 0.4 MG TAB.SUBL SL PRN (08:28)
[2019-11-30] MEDS ORDERED: *HR* Promethazine 25 MG/ML VIAL IVP PRN (08:28)
[2019-11-30] MEDS ORDERED: Acetaminophen 325 MG TABLET PO PRN (08:28)
[2019-11-30] MEDS ORDERED: Oxymetazoline Nasal SPRAY BOTTLE NS PRN (08:28)
[2019-11-30] MEDS ORDERED: Loratadine 10 MG TABLET PO PRN (08:28)
[2019-11-30] MEDS ORDERED: D5% in Water 1,000 ML IVC PRN (08:28)
[2019-11-30] MEDS ORDERED: Naloxone 0.4 MG/ML INJ IVP PRN (08:28)
[2019-11-30] MEDS ORDERED: Pantoprazole 40 MG VIAL IVP SCH (09:00)
[2019-11-30] MEDS: *HR* Amiodarone 200 MG TABLET PO SCH ×2 (09:14→21:36)
[2019-11-30] MEDS: Aspirin Enteric Coated 81 MG Tablet PO SCH (09:14)
[2019-11-30] MEDS: Chlorhexidine Rinse 15 ML MOUTHWASH MM SCH ×2 (09:14→21:35)
[2019-11-30] MEDS: Apixaban 5 MG TABLET PO SCH ×2 (09:14→21:36)
[2019-11-30] MEDS: *HR* Ticagrelor 90 MG TABLET PO SCH ×2 (09:15→21:36)
[2019-11-30] MEDS: Spironolactone 25 MG TABLET PO SCH (09:15)
[2019-11-30] MEDS: Insulin LISPRO 300 UNITS/3 ML VIAL SQ SCH ×3 (12:11→21:37)
[2019-12-01] MEDS: Artificial Tears SOLN 15 ML BOTTLE BOTH EYES PRN ×2 (03:11→16:11)
[2019-12-01 03:28] LABS: Basophils % 0.3 %; Eosinophils # 0.1 K/mcL (0.0-0.6); Eosinophils % 0.8 %; Hematocrit 36.9 % (37.5-50.1); Immature Granulocytes % 0.6 % (0-4); Lymphocytes # 1.2 K/mcL (0.6-4.6); Lymphocytes % 8.3 %; Mean Corpuscular HGB Conc 32.5 g/dL (31.6-35.5); Mean Corpuscular Hemoglobin 31.3 pg (28.0-33.3); Mean Corpuscular Volume 96.1 fL (83.0-100.0); Mean Platelet Volume 9.7 fL (9.4-12.4); Monocytes # 1.8 K/mcL (0.0-1.3); Neutrophils # 11.4 K/mcL (1.6-8.9); Platelet Count 191 K/mcL (140-400); Red Blood Count 3.84 M/mcL (4.19-5.50); Red Cell Distribution Width 13.2 % (11.5-14.5); White Blood Count 14.6 K/mcL (4.3-11.1)
[2019-12-01 03:42] LABS: BUN/Creatinine Ratio 16 (6-26); Blood Urea Nitrogen 14 mg/dL (6-20); Carbon Dioxide 24 mEq/L (23-29); Chloride 96 mEq/L (98-107); Glucose 207 mg/dL (70-105); Osmolality,Calculated 281 (280-300); Potassium 3.4 mEq/L (3.5-5.1); Sodium 132 mEq/L (136-145); eGFR For African Americans > 60 (> 60); eGFR For Non-African Americans > 60 (> 60)
[2019-12-01] MEDS: Chlorhexidine Rinse 15 ML MOUTHWASH MM SCH ×2 (08:14→20:15)
[2019-12-01] MEDS: Spironolactone 25 MG TABLET PO SCH (08:18)
[2019-12-01] MEDS: *HR* Amiodarone 200 MG TABLET PO SCH ×2 (08:19→20:14)
[2019-12-01] MEDS: Insulin LISPRO 300 UNITS/3 ML VIAL SQ SCH ×4 (08:19→20:20)
[2019-12-01] MEDS: Aspirin Enteric Coated 81 MG Tablet PO SCH (13:48)
[2019-12-01] MEDS: *HR* Ticagrelor 90 MG TABLET PO SCH ×2 (13:48→20:14)
[2019-12-01] MEDS: Apixaban 5 MG TABLET PO SCH ×2 (13:48→20:15)
[2019-12-01] MEDS: cephALEXin 500 MG CAPSULE PO SCH ×2 (16:11→20:14)
[2019-12-02 02:09] LABS: Basophils # 0.1 K/mcL (0.0-0.2); Basophils % 0.3 %; Eosinophils # 0.3 K/mcL (0.0-0.6); Eosinophils % 2.2 %; Hematocrit 36.2 % (37.5-50.1); Immature Granulocytes % 0.7 % (0-4); Lymphocytes # 1.8 K/mcL (0.6-4.6); Lymphocytes % 12.3 %; Mean Corpuscular HGB Conc 33.1 g/dL (31.6-35.5); Mean Corpuscular Volume 96.5 fL (83.0-100.0); Mean Platelet Volume 9.5 fL (9.4-12.4); Monocytes # 2.3 K/mcL (0.0-1.3); Monocytes % 15.4 %; Neutrophils # 10.1 K/mcL (1.6-8.9); Platelet Count 222 K/mcL (140-400); Red Blood Count 3.75 M/mcL (4.19-5.50); Red Cell Distribution Width 13.3 % (11.5-14.5); Segmented Neutrophils % 69.1 %; White Blood Count 14.6 K/mcL (4.3-11.1)
[2019-12-02 02:28] LABS: BUN/Creatinine Ratio 19 (6-26); Blood Urea Nitrogen 17 mg/dL (6-20); Calcium 8.8 mg/dL (8.6-10.3); Carbon Dioxide 25 mEq/L (23-29); Chloride 102 mEq/L (98-107); Glucose 134 mg/dL (70-105); Osmolality,Calculated 286 (280-300); Potassium 3.8 mEq/L (3.5-5.1); Sodium 136 mEq/L (136-145); eGFR For African Americans > 60 (> 60); eGFR For Non-African Americans > 60 (> 60)
[2019-12-02] MEDS: *HR* OxyCODONE/APAP 5/325 TABLET PO PRN (04:21)
[2019-12-02 06:57] VITALS: BP 139/84
[2019-12-02] MEDS: *HR* Ticagrelor 90 MG TABLET PO SCH (08:32)
[2019-12-02] MEDS: Chlorhexidine Rinse 15 ML MOUTHWASH MM SCH (08:32)
[2019-12-02] MEDS: Apixaban 5 MG TABLET PO SCH (08:32)
[2019-12-02] MEDS: Aspirin Enteric Coated 81 MG Tablet PO SCH (08:32)
[2019-12-02] MEDS: cephALEXin 500 MG CAPSULE PO SCH (08:32)
[2019-12-02] MEDS: Insulin LISPRO 300 UNITS/3 ML VIAL SQ SCH (08:33)
[2019-12-02] MEDS: *HR* Amiodarone 200 MG TABLET PO SCH (08:33)
[2019-12-02] MEDS: Spironolactone 25 MG TABLET PO SCH (08:33)
== END 2019-12-02 11:51 | disposition home or self-care (01) | DRG 166 ==
LOC: EMEROOARM 12:40 → 3BNU 12:40 → SUATTDRO 14:46 → 3BNU 15:41 → SUATTDRO 11-21 11:28 → 2ANU 11-21 13:32 → ICNU 11-28 11:12 → 2NNU 11-30 18:21
PROVIDERS: ADMIT Student in an Organized Health Care Education/Training Program; ATTEND Internal Medicine